=== PATIENT | female | born 1975 | race Caucasian/White ===

== ENCOUNTER 2022-07-14 11:08 | Outpatient (CLI) | payer BC | END 2022-07-14 11:09 | disposition home or self-care (01) | LOC: CSHMAMMO 11:08 | PROVIDERS: ATTEND Obstetrics & Gynecology | DX: Z12.31 Encounter for screening mammogram for malignant neoplasm of breast (principal); Z98.82 Breast implant status | CPT/HCPCS: 77063; 77067 ==

== ENCOUNTER 2023-10-15 13:14 | Outpatient (CLI) | payer BC | END 2023-10-15 13:15 | disposition home or self-care (01) | LOC: CSHMAMMO 13:14 | PROVIDERS: ATTEND Obstetrics & Gynecology | DX: Z12.31 Encounter for screening mammogram for malignant neoplasm of breast (principal); Z98.82 Breast implant status | CPT/HCPCS: 77063; 77067 ==